=== PATIENT | female | born 1980 | race Caucasian/White ===

== ENCOUNTER 2017-08-05 12:26 | Inpatient (IN) | payer MEDICAID ==
[~2017-08-05] VITALS: Ht 172.7 cm; Wt 79.9 kg
[~2017-08-05 12:26] MED LIST: NITR100C11 PO
[2017-08-05 13:32] LABS: URINE HCG NEGATIVE (NEG)
[2017-08-05 13:33] LABS: CLARITY,URINE CLOUDY (Clear); COLOR,URINE YELLOW (Yellow); GLUCOSE, URINE NEGATIVE (Neg); KETONES,URINE NEGATIVE (Neg); LEUKOCYTE ESTERASE ,URINE LARGE (Neg); NITRITES, URINE NEGATIVE (Neg); OCCULT BLOOD,URINE MODERATE (Neg); PH,URINE 5.5 (4.8-8.0); PROTEIN,URINE 30 mg/dl (Neg)
[2017-08-05] MEDS ORDERED: ondansetron 4mg rapidly disintigrating tab PO ONE (13:35)
[2017-08-05] MEDS ORDERED: acetaminophen 325mg tablet PO ONE (13:35)
[2017-08-05] MEDS ORDERED: HYDROcodone/acetaminophen 5mg/325mg tablet PO ONE (13:35)
[2017-08-05 13:41] LABS: UA COLLECTION TYPE CLN CATCH MIDSTREAM
[2017-08-05 13:49] LABS: WBC,URINE TNTC /HPF (0-4)
[2017-08-05 13:50] LABS: BACTERIA,URINE 2+ /HPF (Neg)
[2017-08-05 13:51] LABS: HYALINE CASTS 0-3 /LPF (NEGATIVE); MUCUS STRANDS MANY /LPF (Neg); SQUAMOUS EPITHELIAL CELL,UR FEW /LPF (FEW)
[2017-08-05] MEDS ORDERED: CefTRIAXone 1000mg IM Kit (w/lidocaine diluent) IM ONE ×2 (14:00→14:20)
[2017-08-05] MEDS ORDERED: normal saline 1000ML IV soln IV ONE (14:25)
[2017-08-05] MEDS ORDERED: ondansetron/PF 4mg/2ml inj IV ONE (15:10)
[2017-08-05 15:24] LABS: BASOPHILS % (AUTO) 0 % (0-1); EOSINOPHILS # (AUTO) 0.1 X10'3 (0-0.9); EOSINOPHILS % (AUTO) 0.5 % (0-6); HEMOGLOBIN 11.6 g/dl (12.0-16.0); LYMPHOCYTES # (AUTO) 1.4 X10'3 (1.1-4.8); LYMPHOCYTES % (AUTO) 8.3 % (21-51); MEAN CORPUSCULAR HEMOGLOBIN 30.5 PG (27.0-31.0); MEAN CORPUSCULAR VOLUME 92.2 FL (78-98); MONOCYTES % (AUTO) 6.1 % (2-12); NEUTROPHILS # (AUTO) 13.8 X10'3 (1.8-7.7); NEUTROPHILS % (AUTO) 85.1 % (42-75); PLATELET COUNT 248 X10'3 (140-440); RED CELL DISTRIBUTION WIDTH 12.9 % (11.5-14.5); WHITE BLOOD COUNT 16.2 X10'3 (4.5-11.0)
[2017-08-05 15:33] LABS: INR 1.1 INR; PARTIAL THROMBOPLASTIN TIME 32 SECONDS (22-32); PROTHROMBIN TIME 11.1 SECONDS (9.0-12.0)
[2017-08-05 15:39] LABS: ALANINE AMINOTRANSFERASE 25 U/L (12-78); ALBUMIN 2.5 G/DL (3.4-5.0); ALBUMIN/GLOBULIN RATIO 0.7 (1.1-1.5); ALKALINE PHOSPHATASE 108 IU/L (46-116); ANION GAP 8 (8-16); ASPARTATE AMINO TRANSFERASE 11 U/L (10-37); BILIRUBIN,TOTAL 0.3 MG/DL (0.1-1.0); BLOOD UREA NITROGEN 10 MG/DL (7-18); BUN/CREATININE RATIO 9.2 (6.6-38.0); CALCIUM 8.9 MG/DL (8.5-10.1); CHLORIDE 106 MMOL/L (99-107); CREATININE 1.09 MG/DL (0.40-0.90); GLUCOSE 99 MG/DL (70-104); MAGNESIUM 1.8 MG/DL (1.5-2.4); SODIUM 140 MMOL/L (135-145); TOTAL CARBON DIOXIDE 26.2 MMOL/L (24-32); eGFR 57 ML/MIN
[2017-08-05] MEDS ORDERED: potassium Cl 20 mEq SR tablet PO STA (15:43)
[2017-08-05] MEDS ORDERED: normal saline 1000ml 1,000 ML IV ONE (15:45)
[2017-08-05] MEDS ORDERED: IBUP-1984 PO (16:30)
[2017-08-05] MEDS ORDERED: HYDROcodone/acetaminophen 5mg/325mg tablet PO PRN (17:25)
[2017-08-05] MEDS ORDERED: HYDROcodone/acetaminophen 10/325mg tab PO PRN (17:25)
[2017-08-05] MEDS ORDERED: magnesium hydroxide 30ml (MOM) UD suspension PO PRN (17:25)
[2017-08-05] MEDS ORDERED: potassium Cl 40MEQ/NS 500ml 500 ML IV PRN ×2 (17:25)
[2017-08-05] MEDS ORDERED: magnesium 4gm in 100ml NS 100 ML IV PRN (17:25)
[2017-08-05] MEDS ORDERED: mag hydrox/Alum hydrox/simeth 30ml oral suspension PO PRN (17:25)
[2017-08-05] MEDS ORDERED: magnesium Cl slow-release 64mg tablet PO PRN (17:25)
[2017-08-05] MEDS ORDERED: potassium Cl 20 mEq SR tablet PO PRN (17:25)
[2017-08-05] MEDS ORDERED: ondansetron/PF 4mg/2ml inj IV PRN (17:25)
[2017-08-05] MEDS ORDERED: magnesium 2GM in 50ml NS 50 ML IV PRN (17:25)
[2017-08-05] MEDS ORDERED: acetaminophen 325mg tablet PO PRN ×2 (17:25)
[2017-08-05 17:55] VITALS: BP 90/55
[2017-08-05 19:50] VITALS: BP_SYST 108; BP_SYST 86; BP_DIAS 54; BP_DIAS 72
[2017-08-05 20:20] VITALS: BP 108/72
[2017-08-05] MEDS ORDERED: temazepam 15mg capsule PO PRN (21:00)
[2017-08-05] MEDS: normal saline 1000ml 1,000 ML IV SCH (21:10)
[2017-08-05] MEDS: potassium Cl 20 mEq SR tablet PO PRN (22:22)
[2017-08-06] VITALS (20 sets, daily range): BP systolic 88–108; BP diastolic 48–67
[2017-08-06] MEDS: normal saline 1000ml 1,000 ML IV SCH ×4 (01:23→18:48)
[2017-08-06] MEDS: potassium Cl 20 mEq SR tablet PO PRN (02:22)
[2017-08-06 06:12] LABS: BASOPHILS % (AUTO) 0.1 % (0-1); EOSINOPHILS # (AUTO) 0.3 X10'3 (0-0.9); EOSINOPHILS % (AUTO) 2.4 % (0-6); HEMATOCRIT 33.8 % (35.0-45.0); HEMOGLOBIN 11.3 g/dl (12.0-16.0); LYMPHOCYTES % (AUTO) 7.8 % (21-51); MEAN CORPUSCULAR HEMOGLOBIN 30.6 PG (27.0-31.0); MEAN CORPUSCULAR HGB CONC 33.3 % (33.0-36.5); MEAN CORPUSCULAR VOLUME 91.8 FL (78-98); MEAN PLATELET VOLUME 8.1 FL (7.4-10.4); MONOCYTES # (AUTO) 0.9 X10'3 (0-0.9); MONOCYTES % (AUTO) 6.8 % (2-12); NEUTROPHILS # (AUTO) 10.8 X10'3 (1.8-7.7); NEUTROPHILS % (AUTO) 82.9 % (42-75); PLATELET COUNT 232 X10'3 (140-440); RED BLOOD COUNT 3.68 X10'6 (4.20-5.60)
[2017-08-06 06:35] LABS: ALANINE AMINOTRANSFERASE 25 U/L (12-78); ALBUMIN 2.1 G/DL (3.4-5.0); ALBUMIN/GLOBULIN RATIO 0.6 (1.1-1.5); ALKALINE PHOSPHATASE 114 IU/L (46-116); ANION GAP 9 (8-16); ASPARTATE AMINO TRANSFERASE 10 U/L (10-37); BILIRUBIN,TOTAL 0.3 MG/DL (0.1-1.0); BLOOD UREA NITROGEN 10 MG/DL (7-18); BUN/CREATININE RATIO 9.6 (6.6-38.0); CALCIUM 8.4 MG/DL (8.5-10.1); CHLORIDE 109 MMOL/L (99-107); CREATININE 1.04 MG/DL (0.40-0.90); GLUCOSE 97 MG/DL (70-104); MAGNESIUM 1.9 MG/DL (1.5-2.4); POTASSIUM 4.6 MMOL/L (3.5-5.1); SODIUM 141 MMOL/L (135-145); TOTAL CARBON DIOXIDE 22.7 MMOL/L (24-32); TOTAL PROTEIN 5.9 G/DL (6.4-8.2); eGFR 60 ML/MIN
[2017-08-06] MEDS: enoxaparin 40mg/0.4ml syringe SQ SCH (08:00)
[2017-08-06] MEDS: K and/or MAG REPLACEMENT MC SCH (08:00)
[2017-08-06] MEDS ORDERED: tamsulosin 0.4mg capsule PO ONE (08:15)
[2017-08-06] MEDS: tamsulosin 0.4mg capsule PO SCH ×2 (08:15→20:30)
[2017-08-06] MEDS: cefTRIAXone 1g/NS 100ml IVPB 100 ML IV SCH (08:37)
[2017-08-06] MEDS: LACTOBACILLUS RHAMNOSUS GG 15 billion unit sprinkle caps PO SCH (08:37)
[2017-08-06] MEDS ORDERED: ringers solution, lacted 1,000 ML IV SCH (14:24)
[2017-08-06] MEDS ORDERED: labetalol 5mg/ml 20ml inj. IV PRN (14:25)
[2017-08-06] MEDS ORDERED: hydrALAZINE 20mg/ml inj. IV PRN (14:25)
[2017-08-06] MEDS ORDERED: ondansetron/PF 4mg/2ml inj IV PRN (14:25)
[2017-08-06] MEDS ORDERED: fentaNYL/PF 50MCG/1 ML 2ML syringe IV PRN ×2 (14:25)
[2017-08-06] MEDS ORDERED: propofol inj 20 ML IV ONE (16:06)
[2017-08-06] MEDS ORDERED: ondansetron/PF 4mg/2ml inj ONE (16:06)
[2017-08-06] MEDS ORDERED: midazolam 2 mg/2 ml injection ONE (16:06)
[2017-08-06] MEDS ORDERED: albumin (Human) 5% 250 ML IV solution IV ONE (18:10)
[2017-08-06] MEDS ORDERED: albumin (Human) 5% 250ml 250 ML IV ONE (18:11)
[2017-08-07] MEDS: normal saline 1000ml 1,000 ML IV SCH (04:28)
[2017-08-07 04:30] VITALS: BP 106/70
[2017-08-07 06:27] LABS: BASOPHILS % (AUTO) 0.1 % (0-1); EOSINOPHILS % (AUTO) 0 % (0-6); HEMATOCRIT 29.6 % (35.0-45.0); HEMOGLOBIN 9.9 g/dl (12.0-16.0); LYMPHOCYTES # (AUTO) 0.6 X10'3 (1.1-4.8); LYMPHOCYTES % (AUTO) 7.9 % (21-51); MEAN CORPUSCULAR HEMOGLOBIN 30.7 PG (27.0-31.0); MEAN CORPUSCULAR HGB CONC 33.3 % (33.0-36.5); MEAN CORPUSCULAR VOLUME 92.2 FL (78-98); MEAN PLATELET VOLUME 8.4 FL (7.4-10.4); MONOCYTES # (AUTO) 0.2 X10'3 (0-0.9); MONOCYTES % (AUTO) 2.5 % (2-12); NEUTROPHILS # (AUTO) 6.2 X10'3 (1.8-7.7); NEUTROPHILS % (AUTO) 89.5 % (42-75); PLATELET COUNT 269 X10'3 (140-440); RED BLOOD COUNT 3.21 X10'6 (4.20-5.60); RED CELL DISTRIBUTION WIDTH 13.5 % (11.5-14.5)
[2017-08-07 06:54] LABS: ALANINE AMINOTRANSFERASE 19 U/L (12-78); ALBUMIN 2.2 G/DL (3.4-5.0); ALBUMIN/GLOBULIN RATIO 0.6 (1.1-1.5); ALKALINE PHOSPHATASE 119 IU/L (46-116); ANION GAP 8 (8-16); ASPARTATE AMINO TRANSFERASE 10 U/L (10-37); BILIRUBIN,TOTAL 0.2 MG/DL (0.1-1.0); BLOOD UREA NITROGEN 18 MG/DL (7-18); BUN/CREATININE RATIO 20.2 (6.6-38.0); CALCIUM 8.9 MG/DL (8.5-10.1); CHLORIDE 107 MMOL/L (99-107); CREATININE 0.89 MG/DL (0.40-0.90); GLUCOSE 149 MG/DL (70-104); MAGNESIUM 1.9 MG/DL (1.5-2.4); POTASSIUM 4.6 MMOL/L (3.5-5.1); SODIUM 138 MMOL/L (135-145); TOTAL CARBON DIOXIDE 23.4 MMOL/L (24-32); TOTAL PROTEIN 6.1 G/DL (6.4-8.2); eGFR 72 ML/MIN
[2017-08-07 07:22] VITALS: BP 121/73
[2017-08-07 07:24] VITALS: BP 103/65
[2017-08-07] MEDS: K and/or MAG REPLACEMENT MC SCH (07:47)
[2017-08-07] MEDS: cefTRIAXone 1g/NS 100ml IVPB 100 ML IV SCH (07:49)
[2017-08-07] MEDS: LACTOBACILLUS RHAMNOSUS GG 15 billion unit sprinkle caps PO SCH (07:49)
[2017-08-07] MEDS: enoxaparin 40mg/0.4ml syringe SQ SCH (07:52)
[2017-08-07] MEDS ORDERED: ACET-2119 PO (09:19)
[2017-08-07] MEDS ORDERED: CIPR-230 PO (09:32)
== END 2017-08-07 09:40 | disposition home or self-care (01) | DRG 720 ==
LOC: ER 12:27 → ED HOLD 15:59 → MED 3N 17:45
PROVIDERS: ADMIT Internal Medicine; ATTEND Internal Medicine
PROC: 0T778DZ Dilation of Left Ureter with Intraluminal Device, Via Natural or Artificial Opening Endoscopic (ICD-10-PCS; principal; 2017-08-06 16:20)
DX: A41.9 Sepsis, unspecified organism (principal); E44.0 Moderate protein-calorie malnutrition; N13.2 Hydronephrosis with renal and ureteral calculous obstruction; N39.0 Urinary tract infection, site not specified; E87.6 Hypokalemia; F17.200 Nicotine dependence, unspecified, uncomplicated; N13.5 Crossing vessel and stricture of ureter without hydronephrosis; N28.82 Megaloureter; Z87.442 Personal history of urinary calculi; A49.01 Methicillin susceptible Staphylococcus aureus infection, unspecified site
CPT/HCPCS: 36415; 71045; 74176; 76000; 80053; 81001; 81025; 83605; 83735; 84145; 85025; 85610; 85730; 87040; 87070; 87077; 87088; 87186; 93005; 96372; 96374; 99285; A4402; A6258; C1758; C1769; C2617; J0696; J1650; J2250; J2270; J2405; J2704; J7030; J7120; P9045

== ENCOUNTER 2021-02-23 12:00 | Emergency (ER) | payer MEDICAID ==
[~2021-02-23] VITALS: Ht 172.7 cm; Wt 95.5 kg
[~2021-02-23 12:00] MED LIST changes: +CIPR-202 PO; -NITR100C11 PO
[2021-02-23 12:12] VITALS: BP 119/68
[2021-02-23 13:10] LABS: BASOPHILS % (AUTO) 0.1 % (0-1); EOSINOPHILS # (AUTO) 0.1 X10'3 (0-0.9); EOSINOPHILS % (AUTO) 0.5 % (0-6); HEMATOCRIT 36.1 % (35.0-45.0); HEMOGLOBIN 11.9 g/dl (12.0-16.0); LYMPHOCYTES # (AUTO) 0.8 X10'3 (1.1-4.8); LYMPHOCYTES % (AUTO) 5.9 % (21-51); MEAN CORPUSCULAR HEMOGLOBIN 29.5 PG (27.0-31.0); MEAN CORPUSCULAR HGB CONC 33.1 g/dL (33.0-36.5); MEAN CORPUSCULAR VOLUME 89.4 FL (78-98); MEAN PLATELET VOLUME 7.9 FL (7.4-10.4); MONOCYTES # (AUTO) 0.7 X10'3 (0-0.9); MONOCYTES % (AUTO) 4.7 % (2-12); NEUTROPHILS # (AUTO) 12.7 X10'3 (1.8-7.7); NEUTROPHILS % (AUTO) 88.8 % (42-75); PLATELET COUNT 337 X10'3 (140-440); RED BLOOD COUNT 4.03 X10'6 (4.20-5.60); RED CELL DISTRIBUTION WIDTH 13.8 % (11.5-14.5); WHITE BLOOD COUNT 14.3 X10'3 (4.5-11.0)
[2021-02-23] MEDS ORDERED: ibuprofen tablet 400 MG TABLET PO ONE (14:25)
[2021-02-23] MEDS ORDERED: HYDROcodone/acetaminophen 5mg/325mg tablet PO ONE (15:00)
[2021-02-23] MEDS ORDERED: probenecid 500mg tablet PO ONE (15:10)
[2021-02-23] MEDS ORDERED: NORMAL SALINE IV ONE (15:10)
[2021-02-23] MEDS ORDERED: GENTAMICIN IV ONE (15:10)
[2021-02-23] MEDS ORDERED: ampicillin/sulbac 3gm/NS 100ml 100 ML IV SCH (15:12)
[2021-02-23] MEDS ORDERED: SULF1TAB45 PO (16:34)
[2021-02-24] MEDS ORDERED: SULF1TAB45 PO (16:32)
== END 2021-02-23 16:42 | disposition home or self-care (01) ==
LOC: ER 12:01
DX: L03.115 Cellulitis of right lower limb (principal); Z79.2 Long term (current) use of antibiotics; Z79.899 Other long term (current) drug therapy; Z87.442 Personal history of urinary calculi
CPT/HCPCS: 36415; 83605; 84145; 85025; 85651; 86140; 87040; 96365; 96367; 99284; J1580; J0295

== ENCOUNTER 2021-02-24 11:45 | Emergency (ER) | payer MEDICAID ==
[~2021-02-24] VITALS: Ht 172.7 cm; Wt 95.5 kg
[~2021-02-24 11:45] MED LIST changes: +SULF1TAB45 PO
[2021-02-24 12:03] VITALS: BP 115/62
[2021-02-24] MEDS ORDERED: probenecid 500mg tablet PO ONE (14:05)
[2021-02-24] MEDS ORDERED: gentamicin 40 MG/1 ML inj IV ONE (14:05)
[2021-02-24] MEDS ORDERED: HYDROcodone/acetaminophen 5mg/325mg tablet PO ONE (14:10)
[2021-02-24] MEDS ORDERED: GENTAMICIN IV ONE (14:20)
[2021-02-24] MEDS ORDERED: NORMAL SALINE IV ONE (14:20)
[2021-02-24] MEDS ORDERED: SULF1TAB45 PO (16:32)
[2021-02-24] MEDS ORDERED: ampicillin/sulbac 3gm/NS 100ml 100 ML IV ONE (20:00)
== END 2021-02-24 16:41 | disposition home or self-care (01) ==
LOC: ER 11:46
DX: L03.115 Cellulitis of right lower limb (principal); R50.9 Fever, unspecified; Z87.442 Personal history of urinary calculi; Z79.2 Long term (current) use of antibiotics; Z79.899 Other long term (current) drug therapy
CPT/HCPCS: 96365; 96366; 96368; 99284; J1580; J0295

== ENCOUNTER 2021-03-06 20:33 | Emergency (ER) | payer MEDICAID ==
[~2021-03-06] VITALS: Ht 172.7 cm; Wt 96.0 kg
[~2021-03-06 20:33] MED LIST changes: -SULF1TAB45 PO
[2021-03-06 20:42] VITALS: BP 147/90
== END 2021-03-07 03:09 | disposition left against medical advice (07) ==
LOC: ER 20:34
DX: M79.89 Other specified soft tissue disorders (principal); Z53.21 Procedure and treatment not carried out due to patient leaving prior to being seen by health care provider

== ENCOUNTER 2021-03-08 21:18 | Emergency (ER) | payer MEDICAID ==
[~2021-03-08] VITALS: Ht 172.7 cm; Wt 95.5 kg
[2021-03-08 21:31] VITALS: BP 127/93
[2021-03-09 00:10] LABS: BASOPHILS # (AUTO) 0.1 X10'3 (0-0.2); EOSINOPHILS # (AUTO) 0.2 X10'3 (0-0.9); HEMOGLOBIN 12.3 g/dl (12.0-16.0); LYMPHOCYTES # (AUTO) 2.5 X10'3 (1.1-4.8); MEAN CORPUSCULAR HEMOGLOBIN 30.2 PG (27.0-31.0); MEAN CORPUSCULAR HGB CONC 33.8 g/dL (33.0-36.5); RED BLOOD COUNT 4.08 X10'6 (4.20-5.60)
[2021-03-09 00:12] LABS: BASOPHILS % (AUTO) 0.9 % (0-1); EOSINOPHILS % (AUTO) 2.4 % (0-6); HEMATOCRIT 36.4 % (35.0-45.0); LYMPHOCYTES % (AUTO) 35.9 % (21-51); MEAN CORPUSCULAR VOLUME 89.3 FL (78-98); MONOCYTES # (AUTO) 0.5 X10'3 (0-0.9); MONOCYTES % (AUTO) 6.8 % (2-12); NEUTROPHILS # (AUTO) 3.8 X10'3 (1.8-7.7); PLATELET COUNT 616 X10'3 (140-440); RED CELL DISTRIBUTION WIDTH 13.9 % (11.5-14.5)
[2021-03-09 00:32] LABS: ALANINE AMINOTRANSFERASE 35 U/L (12-78); ALBUMIN 3.3 G/DL (3.4-5.0); ALBUMIN/GLOBULIN RATIO 0.7 (1.1-1.5); ALKALINE PHOSPHATASE 177 IU/L (46-116); ANION GAP 6 (8-16); ASPARTATE AMINO TRANSFERASE 23 U/L (10-37); BILIRUBIN,TOTAL 0.2 MG/DL (0.1-1.0); BLOOD UREA NITROGEN 15 MG/DL (7-18); BUN/CREATININE RATIO 11.9 (6.6-38.0); CALCIUM 9.5 MG/DL (8.5-10.1); CHLORIDE 106 MMOL/L (99-107); CREATININE 1.26 MG/DL (0.40-0.90); GLUCOSE 96 MG/DL (70-104); POTASSIUM 3.1 MMOL/L (3.5-5.1); SODIUM 143 MMOL/L (135-145); TOTAL CARBON DIOXIDE 30.7 MMOL/L (24-32); TOTAL PROTEIN 8.1 G/DL (6.4-8.2); eGFR 47 ML/MIN
[2021-03-09] MEDS ORDERED: MUPI22OI30 TOP (00:44)
== END 2021-03-09 00:54 | disposition home or self-care (01) ==
LOC: ER 21:19
DX: S81.801A Unspecified open wound, right lower leg, initial encounter (principal); L01.00 Impetigo, unspecified; E87.6 Hypokalemia; R94.4 Abnormal results of kidney function studies; Z79.2 Long term (current) use of antibiotics; Z87.442 Personal history of urinary calculi; Z79.899 Other long term (current) drug therapy; X58.XXXA Exposure to other specified factors, initial encounter; Y93.89 Activity, other specified; Y92.89 Other specified places as the place of occurrence of the external cause; Y99.8 Other external cause status
CPT/HCPCS: 36415; 80053; 83605; 84145; 85025; 87040; 99283

== ENCOUNTER 2021-03-28 18:12 | Emergency (ER) | payer MEDICAID ==
[~2021-03-28] VITALS: Ht 172.7 cm; Wt 100.0 kg
[2021-03-28 18:15] VITALS: BP 147/88
[2021-03-28 18:49] LABS: BASOPHILS # (AUTO) 0.1 X10'3 (0-0.2); BASOPHILS % (AUTO) 0.6 % (0-1); EOSINOPHILS # (AUTO) 0.1 X10'3 (0-0.9); EOSINOPHILS % (AUTO) 1.4 % (0-6); HEMOGLOBIN 12.4 g/dl (12.0-16.0); LYMPHOCYTES # (AUTO) 2.2 X10'3 (1.1-4.8); LYMPHOCYTES % (AUTO) 25.1 % (21-51); MEAN CORPUSCULAR HEMOGLOBIN 30.7 PG (27.0-31.0); MEAN CORPUSCULAR HGB CONC 34.4 g/dL (33.0-36.5); MEAN CORPUSCULAR VOLUME 89.3 FL (78-98); MEAN PLATELET VOLUME 7.3 FL (7.4-10.4); MONOCYTES # (AUTO) 0.5 X10'3 (0-0.9); MONOCYTES % (AUTO) 5.6 % (2-12); NEUTROPHILS % (AUTO) 67.3 % (42-75); PLATELET COUNT 309 X10'3 (140-440); RED BLOOD COUNT 4.03 X10'6 (4.20-5.60); RED CELL DISTRIBUTION WIDTH 14.8 % (11.5-14.5)
[2021-03-28 19:00] LABS: ALANINE AMINOTRANSFERASE 20 U/L (12-78); ALBUMIN 3.4 G/DL (3.4-5.0); ALBUMIN/GLOBULIN RATIO 0.9 (1.1-1.5); ALKALINE PHOSPHATASE 134 IU/L (46-116); ANION GAP 6 (8-16); ASPARTATE AMINO TRANSFERASE 12 U/L (10-37); BILIRUBIN,TOTAL 0.3 MG/DL (0.1-1.0); BLOOD UREA NITROGEN 15 MG/DL (7-18); BUN/CREATININE RATIO 14.4 (6.6-38.0); CALCIUM 9.3 MG/DL (8.5-10.1); CHLORIDE 107 MMOL/L (99-107); CREATININE 1.04 MG/DL (0.40-0.90); GLUCOSE 103 MG/DL (70-104); POTASSIUM 3.8 MMOL/L (3.5-5.1); SODIUM 143 MMOL/L (135-145); TOTAL CARBON DIOXIDE 30.1 MMOL/L (24-32); TOTAL PROTEIN 7.4 G/DL (6.4-8.2); eGFR 59 ML/MIN
[2021-03-28] MEDS ORDERED: CEPH500C2 PO (22:22)
[2021-03-28] MEDS ORDERED: bacitracin 15gm ointment TP ONE (22:25)
== END 2021-03-28 23:17 | disposition home or self-care (01) ==
LOC: ER 18:13
DX: L97.519 Non-pressure chronic ulcer of other part of right foot with unspecified severity (principal); Z79.2 Long term (current) use of antibiotics; Z79.899 Other long term (current) drug therapy; Z87.442 Personal history of urinary calculi
CPT/HCPCS: 36415; 80053; 85025; 99283

== ENCOUNTER 2023-01-31 02:09 | Emergency (ER) | payer MEDICAID ==
[~2023-01-31] VITALS: Ht 172.7 cm; Wt 77.3 kg
[2023-01-31] MEDS ORDERED: NO HOME MEDS (02:43)
[2023-01-31] MEDS ORDERED: ondansetron/PF 4mg/2ml inj IV ONE (03:00)
[2023-01-31] MEDS ORDERED: normal saline 1000ML IV soln IVB ONE (03:00)
[2023-01-31] MEDS ORDERED: morphine 4 MG/ML inj SYRINge IV PRN (03:00)
[2023-01-31 03:07] LABS: ALANINE AMINOTRANSFERASE 21 U/L (12-78); ALBUMIN 2.7 G/DL (3.4-5.0); ALBUMIN/GLOBULIN RATIO 0.6 (1.1-1.5); ALKALINE PHOSPHATASE 112 IU/L (46-116); ANION GAP 8 (8-16); ASPARTATE AMINO TRANSFERASE 10 U/L (10-37); BILIRUBIN,TOTAL 0.5 MG/DL (0.1-1.0); BLOOD UREA NITROGEN 17 MG/DL (7-18); BUN/CREATININE RATIO 14.9 (10.0-20.0); CALCIUM 9.2 MG/DL (8.5-10.1); CHLORIDE 101 MMOL/L (99-107); CREATININE 1.14 MG/DL (0.40-0.90); GLUCOSE 105 MG/DL (70-104); LIPASE < 50 U/L (73-393); SODIUM 139 MMOL/L (135-145); TOTAL CARBON DIOXIDE 29.6 MMOL/L (24-32); TOTAL PROTEIN 6.9 G/DL (6.4-8.2); eGFR 53 ML/MIN
[2023-01-31] MEDS ORDERED: potassium Cl 20 mEq SR tablet PO STA (03:13)
[2023-01-31 03:18] LABS: BASOPHILS % (AUTO) 0.3 % (0-1); EOSINOPHILS # (AUTO) 0.6 X10'3 (0-0.9); EOSINOPHILS % (AUTO) 3.6 % (0-6); HEMATOCRIT 34.2 % (35.0-45.0); HEMOGLOBIN 11.1 g/dl (12.0-16.0); LYMPHOCYTES # (AUTO) 1.5 X10'3 (1.1-4.8); LYMPHOCYTES % (AUTO) 8.5 % (21-51); MEAN CORPUSCULAR HEMOGLOBIN 29.3 PG (27.0-31.0); MEAN CORPUSCULAR HGB CONC 32.6 g/dL (33.0-36.5); MEAN CORPUSCULAR VOLUME 89.8 FL (78-98); MEAN PLATELET VOLUME 7.4 FL (7.4-10.4); MONOCYTES # (AUTO) 0.6 X10'3 (0-0.9); MONOCYTES % (AUTO) 3.3 % (2-12); NEUTROPHILS # (AUTO) 14.9 X10'3 (1.8-7.7); NEUTROPHILS % (AUTO) 84.3 % (42-75); PLATELET COUNT 345 X10'3 (140-440); RED BLOOD COUNT 3.81 X10'6 (4.20-5.60); RED CELL DISTRIBUTION WIDTH 13.5 % (11.5-14.5); WHITE BLOOD COUNT 17.7 X10'3 (4.5-11.0)
[2023-01-31 03:23] LABS: HCG SERUM QL NEGATIVE
[2023-01-31 05:56] LABS: CLARITY,URINE SLIGHTLY CLOUDY (Clear); GLUCOSE, URINE NEGATIVE (Neg); KETONES,URINE NEGATIVE (Neg); LEUKOCYTE ESTERASE ,URINE TRACE (Neg); NITRITES, URINE POSITIVE (Neg); OCCULT BLOOD,URINE TRACE-INTACT (Neg); PROTEIN,URINE 100 mg/dl (Neg)
[2023-01-31 05:58] LABS: COLOR,URINE DARK YELLOW (Yellow); UA COLLECTION TYPE CLN CATCH MIDSTREAM
[2023-01-31 06:08] LABS: BACTERIA,URINE 4+ /HPF (Neg); MUCUS STRANDS NONE SEEN /LPF (Neg); RBC,URINE 0-2 /HPF (0-2); SQUAMOUS EPITHELIAL CELL,UR NONE SEEN /LPF (FEW); WBC CLUMPS,URINE FEW /HPF (NEGATIVE); WBC,URINE 30-50 /HPF (0-4)
[2023-01-31] MEDS ORDERED: CEPH-585 PO (06:09)
[2023-01-31] MEDS ORDERED: ONDA4TAB12 PO (06:10)
[2023-01-31] MEDS ORDERED: CefTRIAXone/D5W-Rocephin 1gm 50 ML IV ONE (06:10)
[2023-01-31] MEDS ORDERED: HYDR-3965 PO (06:11)
[2023-01-31 07:23] VITALS: BP 100/61
== END 2023-01-31 07:26 | disposition home or self-care (01) ==
LOC: ER 02:09
DX: N12 Tubulo-interstitial nephritis, not specified as acute or chronic (principal); E87.6 Hypokalemia; E86.0 Dehydration
CPT/HCPCS: 36415; 74176; 80053; 81001; 83690; 84484; 84703; 85025; 87077; 87088; 87186; 96361; 96374; 96375; 99285; J0696; J2270; J2405; J7030